=== PATIENT | male | born 1940 | race Caucasian/White ===

== ENCOUNTER 2018-08-01 13:05 | Observation (INO) ==
[2018-08-01] MEDS ORDERED: Ipratropium/Albuterol Neb 3 ML IH ONE (13:29)
[2018-08-01 13:37] LABS: Basophils % 0.4 %; Eosinophils % 0.4 %; Hematocrit 45.9 % (37.5-50.1); Hemoglobin 14.2 g/dL (12.9-16.9); Immature Granulocytes % 0.4 % (0-4); Lymphocytes # 1.4 K/mcL (0.6-4.6); Lymphocytes % 20.2 %; Mean Corpuscular HGB Conc 30.9 g/dL (31.6-35.5); Mean Corpuscular Volume 90.5 fL (83.0-100.0); Mean Platelet Volume 12.3 fL (9.4-12.4); Monocytes # 0.7 K/mcL (0.0-1.3); Monocytes % 9.9 %; Neutrophils # 4.9 K/mcL (1.6-8.9); Platelet Count 216 K/mcL (140-400); Red Blood Count 5.07 M/mcL (4.19-5.50); Red Cell Distribution Width 15.2 % (11.5-14.5); Segmented Neutrophils % 68.7 %
--- NOTE | 2018-08-01 13:38 | Emergency Department Note ---
Disposition Clinical Impression: CHF exacerbation Qualifiers: Heart failure type: unspecified Qualified Code(s): I50.9 - Heart failure, unspecified Disposition: Admitted As Inpatient Condition: Fair Time of Disposition: 15:33 SOB HPI - General Chief Complaint: ED Shortness of Breath/Dyspnea Stated Complaint: ANAI Time Seen by Provider: 08/01/18 13:09 Source: patient, family Mode of arrival: ambulatory Limitations: no limitations Nursing Notes Reviewed: Yes Vital Signs Reviewed: Yes - History of Present Illness Patient presents to the emergency department for evaluation of increasing shortness of breath over the last week. He states that he has had similar symptoms in the past, and recently underwent a left-sided thoracentesis, which did result in resolution of his symptoms for a short period of time. He says that his symptoms have returned over the last week, and he has had worsening shortness of breath with exertion and when lying flat. He denies any sputum production, chest congestion, fevers, or chills. He states that he called his do ctor's office and was unable to be seen until Friday. He says that he was instructed to go to the emergency department for evaluation and possible repeat thoracentesis if his symptoms worsened, prompting his visit today. He denies any other concerns at this time. Pt Subjective Complaint: shortness of breath Onset (ago): day(s) Consistency/Duration: gradually worsening Improves with: nothing Worsens with: lying flat, exertion Known history of: COPD, congestive heart failure Associated symptoms: Reports: denies other symptoms Treatment prior to arrival: none Cough present: No - Related Data Home Medications Medication Instructions Recorded Confirmed Albuterol Sulfate [Albuterol 2 puff IH DAILY 08/01/18 08/01/18 Inhaler] Apixaban [Eliquis] 5 mg PO BID 08/01/18 08/01/18 Aspirin [Lo-Dose Aspirin EC] 81 mg PO DAILY 08/01/18 08/01/18 Atorvastatin [Lipitor] 80 mg PO HS 08/01/18 08/01/18 Budesonide/Formoterol 160/4.5 2 puff IH BIDR 08/01/18 08/01/18 [Symbicort 160/4.5] Empagliflozin [Jardiance] 25 mg PO DAILY 08/01/18 08/01/18 Furosemide [Lasix] 20 mg PO DAILY 08/01/18 08/01/18 Glimepiride [Amaryl] 4 mg PO BID 08/01/18 08/01/18 Insulin Glargine [Lantus] 0 unit SQ 08/01/18 Nitroglycerin [Nitrostat] 0.4 mg SL Q5-10MIN PRN 08/01/18 08/01/18 Potassium Chloride [Klor-Con 10] 10 meq PO DAILY 08/01/18 08/01/18 RX: Carvedilol 12.5 mg PO BID 08/01/18 08/01/18 RX: hydroCHLOROthiazide 12.5 mg PO DAILY 08/01/18 08/01/18 [Hydrochlorothiazide] RX: traZODone [TraZODone] 50 mg PO HS 08/01/18 08/01/18 Tiotropium [Spiriva] 18 mcg IH 0700 08/01/18 08/01/18 metFORMIN [Glucophage] 1,000 mg PO BIDWM 08/01/18 08/01/18 Allergies Allergy/AdvReac Type Severity Reaction Status Date / Time Penicillins Allergy Rash Verified 07/15/18 09:52 Constitutional: Denies: fever, chills, weakness, weight change Eyes: Denies: eye pain, eye discharge, vision change Cardiovascular: Denies: chest pain, palpitations, dyspnea on exertion, edema, syncope Respiratory: Reports: as per HPI. Denies: cough, dyspnea, wheezes, hemoptysis, stridor Gastrointestinal: Denies: abdominal pain, nausea, vomiting, diarrhea, constipation, hematemesis, melena, hematochezia Musculoskeletal: Denies: back pain, neck pain, arthralgia, myalgia Past Medical History - Past Medical History Medical history: Reports: asthma, atrial fibrillation, CHF, CVA, diabetes, GERD, hypertension Surgical history: Reports: appendectomy, tonsilectomy, vascular surgery Psychiatric history: Reports: no psych history - Social History Smoking Status: Current every day smoker Smokeless Tobacco Status: No Alcohol use: Reports: none Drug use: Reports: none Physical Exam - General Limitations: no limitations General appearance: alert - Head Head exam: atraumatic, normocephalic, normal inspection - Eye Eye exam: Present: normal appearance, PERRL, EOMI - ENT ENT exam: normal exam, normal oropharynx, mucous membranes moist - Neck Neck exam: Present: normal inspection, full ROM, trachea midline - Chest Chest inspection: Present: normal inspection - Respiratory Respiratory exam: Present: wheezes, prolonged expiratory phase - Cardiovascular Cardiovascular exam: Present: irregular rhythm, normal heart sounds, +S1, +S2 - Abdominal Exam Abdominal exam: Present: soft, Non-Tender. Absent: tenderness, distention, guarding, rebound, rigidity - Extremities Exam Extremities exam: Present: pedal edema (mild pitting edema LLE) - Neurological Exam Neurological exam: Present: alert, oriented X3 - Psychiatric Psychiatric exam: Present: normal affect, normal mood Course Course Narrative: Vital signs reviewed. Concern for COPD and/or CHF exacerbation. We will obtain EKG, chest xray, and basic laboratory studies, including BNP. Disposition pending. - Reevaluation(s) Reevaluation #1: Laboratory and imaging studies reviewed. At this time, patient is appropriate for hospital admission for CHF exacerbation. Case was discussed with the admitting hospitalist, Dr. Roy, who accepted the patient for admission. Reevaluation #2: The patient did not improve with breathing treatments. Patient was significant elevated BNP. Given cardiac history likely related to CHF. Patient given Lasix. Patient will be admitted for further management. Vital Signs Temperature 98.6 F 08/01/18 13:13 Pulse Rate 105 08/01/18 13:13 Respiratory Rate 16 08/01/18 13:13 Blood Pressure 101/82 08/01/18 13:13 O2 Sat by Pulse Oximetry 92 08/01/18 13:13 Temperature 98.6 F 08/01/18 13:13 Pulse Rate 108 08/01/18 15:19 Respiratory Rate 20 08/01/18 15:19 Blood Pressure 169/89 08/01/18 15:19 O2 Sat by Pulse Oximetry 98 08/01/18 15:19 Oxygen Delivery Oxygen Delivery Nasal Cannula Shortness of Breath/Dyspnea - Lab Data Lab results reviewed: Yes I reviewed the patient's lab results. Result diagrams: 08/01/18 13:22 08/01/18 13:22 Lab Results 08/01/18 08/01/18 08/01/18 Range/Units 13:22 13:22 13:22 WBC 7.1 (4.3-11.1) K/mcL RBC 5.07 (4.19-5.50) M/mcL Hgb 14.2 (12.9-16.9) g/dL Hct 45.9 (37.5-50.1) % MCV 90.5 (83.0-100.0) fL MCH 28.0 (28.0-33.3) pg MCHC 30.9 L (31.6-35.5) g/dL RDW 15.2 H (11.5-14.5) % Plt Count 216 (140-400) K/mcL MPV 12.3 (9.4-12.4) fL Immature Gran % 0.4 (0-4) % Seg Neutrophils % 68.7 % Lymphocytes % 20.2 % Monocytes % 9.9 % Eosinophils % 0.4 % Basophils % 0.4 % Neutrophils # 4.9 (1.6-8.9) K/mcL Lymphocytes # 1.4 (0.6-4.6) K/mcL Monocytes # 0.7 (0.0-1.3) K/mcL Eosinophils # 0.0 (0.0-0.6) K/mcL Basophils # 0.0 (0.0-0.2) K/mcL Sodium 139 (136-145) mEq/L Potassium 4.2 (3.5-5.1) mEq/L Chloride 103 (98-107) mEq/L Carbon Dioxide 28 (23-29) mEq/L BUN 16 (8-23) mg/dL Creatinine 0.92 (0.70-1.30) mg/dL Est GFR ( Amer) > 60 (> 60) Est GFR (Non-Af Amer) > 60 (> 60) BUN/Creatinine Ratio 17 (6-26) Glucose 160 H (70-105) mg/dL Calculated Osmolality 293 (280-300) Lactic Acid (0.5-2.2) mmol/L Calcium 9.0 (8.6-10.3) mg/dL Troponin I 0.03 (< 0.04) ng/mL B-Natriuretic Peptide 859 H (Less than 100) pg/mL 08/01/18 Range/Units 14:00 WBC (4.3-11.1) K/mcL RBC (4.19-5.50) M/mcL Hgb (12.9-16.9) g/dL Hct (37.5-50.1) % MCV (83.0-100.0) fL MCH (28.0-33.3) pg MCHC (31.6-35.5) g/dL RDW (11.5-14.5) % Plt Count (140-400) K/mcL MPV (9.4-12.4) fL Immature Gran % (0-4) % Seg Neutrophils % % Lymphocytes % % Monocytes % % Eosinophils % % Basophils % % Neutrophils # (1.6-8.9) K/mcL Lymphocytes # (0.6-4.6) K/mcL Monocytes # (0.0-1.3) K/mcL Eosinophils # (0.0-0.6) K/mcL Basophils # (0.0-0.2) K/mcL Sodium (136-145) mEq/L Potassium (3.5-5.1) mEq/L Chloride (98-107) mEq/L Carbon Dioxide (23-29) mEq/L BUN (8-23) mg/dL Creatinine (0.70-1.30) mg/dL Est GFR ( Amer) (> 60) Est GFR (Non-Af Amer) (> 60) BUN/Creatinine Ratio (6-26) Glucose (70-105) mg/dL Calculated Osmolality (280-300) Lactic Acid 0.9 (0.5-2.2) mmol/L Calcium (8.6-10.3) mg/dL Troponin I (< 0.04) ng/mL B-Natriuretic Peptide (Less than 100) pg/mL - Radiology Data Radiology results reviewed: Yes I reviewed the patient's radiology results. - EKG Data EKG attestation: Yes I reviewed and interpreted this EKG. EKG results narrative: Atrial fibrillation with rate 108bpm. No ST or T-wave abnormalities. Attestation Statement - Attestation Attestation: Resident Attestation: I examined this patient and my medical decision making was reviewed with the Resident Physician. I agree with the documented findings, disposition and treatment plan as described except to the extent set forth below. We independently had [id number] contact with the patient. Patient with a significant history of CHF as well as COPD underwent recent thoracentesis as well as recent PET scan. Patient complaining of shortness of breath. Patient's shortness of breath is worse with exertion. Patient is otherwise comfortable while he was resting in the bed. Patient does have significant wheezing throughout. Patient will receive breathing treatments as well as investigation for other underlying pathology.
[2018-08-01 14:03] LABS: BUN/Creatinine Ratio 17 (6-26); Blood Urea Nitrogen 16 mg/dL (8-23); Carbon Dioxide 28 mEq/L (23-29); Chloride 103 mEq/L (98-107); Glucose 160 mg/dL (70-105); Osmolality,Calculated 293 (280-300); Potassium 4.2 mEq/L (3.5-5.1); Sodium 139 mEq/L (136-145); Troponin I 0.03 ng/mL (< 0.04); eGFR For Non-African Americans > 60 (> 60)
[2018-08-01] MEDS ORDERED: Furosemide 40 MG/4 ML VIAL IVP ONE (15:06)
[2018-08-01] MEDS ORDERED: traMADol 50 MG TABLET PO PRN (16:17)
[2018-08-01] MEDS ORDERED: Naloxone 0.4 MG/ML INJ IVP PRN (16:17)
[2018-08-01] MEDS ORDERED: Isovue-370 500 ML BOTTLE IVP ONE (16:22)
[2018-08-01] MEDS ORDERED: Ipratropium/Albuterol Neb 3 ML IH PRN (16:23)
[2018-08-01] MEDS ORDERED: Dextrose Gel 15 GM/37.5 ML TUBE PO PRN ×2 (16:56)
[2018-08-01] MEDS ORDERED: D5% in Water 1,000 ML IVC PRN (16:56)
[2018-08-01] MEDS ORDERED: *HR* Dextrose 50 % in Water (Syg) 50 ML SYRINGE IVP PRN (16:56)
--- NOTE | 2018-08-01 17:02 | Internal Med History&Physical ---
Date of Encounter: 08/01/18 Time of Encounter: 16:57 Internal Medicine - H&P: HPI Chief complaint: shortness of breath Plans for Post Hospital Care: Home History of present illness: Mr. Donaldson is a 78 year old male PMH of A.fib on eliquis, CHF, DM, HLD, HTN, COPD and tobacco abuse. Patient presented to the ED due to shortness of breath. He reports for the past 1 week he has been feeling short of breath with mild exertion, but the shortness of breath has worsen for the past 3-4 days, and he is getting short of breath while walking a shorter distance, also reports worsening edema of the lower extremities, denies orthopnea or PND. He denies chest pain, nausea or vomiting. Reports he has been compliant with his medications. Reports this symptoms are similar to what he had about two weeks ago when he was found to have a large effusion on his chest that needed to be drained. Reported productive cough of clear and yellowish sputum. Denies fever, chills, blood in his urine or the stool. Past Med Surg Social Fam HX - Past Medical History Medical history: asthma, atrial fibrillation, CHF, CVA, diabetes, GERD, hypertension Additional medical history: CVA 10/2017. A-fib. heart and carotid stents. bilateral plueral effusions Psychiatric history: no psych history - Past Surgical History Surgical History: appendectomy, tonsilectomy, vascular surgery - Social History Smoking Status: Current every day smoker Smokeless Tobacco Status: No Alcohol use: none Drug use: none - Additional Family History Additional family history: Family Hx non-contributory Internal Medicine - H&P: Meds Allergy/AdvReac Type Severity Reaction Status Date / Time Penicillins Allergy Rash Verified 07/15/18 09:52 All Systems PM: A 10-system review of systems was performed and is negative for pertinent findings except as documented above in the HPI. - Constitutional Constitutional: malaise, weakness, no chills, no fever(s), no lethargy, no weight gain, no weight loss - EENT Eyes: no discharge - Cardiovascular Cardiovascular ROS IM: dyspnea, dyspnea on exertion, edema, no chest pain, no diaphoresis, no irregular heart rhythm, no lightheadedness, no orthopnea, no palpitations, no syncope - Respiratory Respiratory: cough, dyspnea on exertion, no wheezing, no chest congestion, no excessive phlegm production, no change in phlegm color, no pain with cough - Gastrointestinal Gastrointestinal: no abdominal pain, no constipation, no dyspepsia, no nausea, no vomiting - Genitourinary Genitourinary ROS male: no dysuria, no nocturia, no urinary frequency, no urinary urgency - Musculoskeletal Musculoskeletal ROS IM: no back pain - Integumentary Integumentary IM: no sores - Neurological Neurological ROS: no headache(s) - Psychiatric Psychiatric: no anxiety, no hopelessness, no irritability - Endocrine Endocrine IM: no cold intolerance, no excessive sweating - Hematologic/Lymphatic Hematologic/Lymphatic: no lymphadenopathy - Allergic/Immunologic Allergic/Immunologic: no GI upset with certain foods Additional comments: Rest of a 10 review of system negative. - Constitutional Vitals: Temp Pulse Resp BP Pulse Ox 98.6 F 90 22 163/89 98 08/01/18 13:13 08/01/18 16:00 08/01/18 16:00 08/01/18 16:00 08/01/18 16:00 Exam: Vitals: reviewed. General: Alert and oriented x4. In mild distress due to shortness of breath Skin: Normal color, no rash, no lesions. HEENT: EOM, pupils equal, round and reactive. Cardiovascular: Irregularly, irregular, normal S1 & S2, no rubs, gallops. III/ systolic murmur. Lungs: scattered b/l expiratory wheezing, no crackles or rales. Abdomen: Obese, soft, non-tender, no rigidity. Extremities: 2+ edema in the lower extr b/l. Neurological: Normal cognition Rest of the physical exam is non contributory Internal Med - H&P Results - Labs CBC & Chem 7: 08/01/18 13:22 08/01/18 13:22 Labs: Short CBC 08/01/18 Range/Units 13:22 WBC 7.1 (4.3-11.1) K/mcL Hgb 14.2 (12.9-16.9) g/dL Hct 45.9 (37.5-50.1) % Plt Count 216 (140-400) K/mcL Neutrophils # 4.9 (1.6-8.9) K/mcL BMP 08/01/18 13:22 Sodium 139 Potassium 4.2 Chloride 103 Carbon Dioxide 28 BUN 16 Creatinine 0.92 Glucose 160 H Calcium 9.0 Cardiac Enzymes 08/01/18 Range/Units 13:22 Troponin I 0.03 (< 0.04) ng/mL - Impressions ITS Impressions Chest X-Ray 08/01/18 13:30 IMPRESSION: 1. Bilateral lower lobe airspace opacification could represent a multifocal pneumonia 2. Left-sided pleural effusion D/ / Kendall Rojas MD / Kendall Rojas MD Interpreting Provider: Kendall Rojas MD - Diagnostic Studies Chest x-ray Status: image reviewed by me (b/l pleural effusion) - Assessment and Plan (1) CHF exacerbation Current Visit: Yes Status: Acute Assessment and plan: patient presenting with shortness of breath, elevated BNP and edema of the lower extremities Plan: IV diruresis with furosemide 40mg/IV BID strict intake and output water restriction to 1.5 litters a day. daily weight Low dose beta-donna TTE ordered Qualifiers: Heart failure type: unspecified Qualified Code(s): I50.9 - Heart failure, unspecified (2) COPD exacerbation Current Visit: Yes Status: Acute Assessment and plan: patient with b/l expiratory wheezing. Hx of tobacco abuse. Plan Started on bronchodilators Q4RT scheduled Solu-Medrol 40mg/IV Q12hr started on empiric antibiotics coverage with levofloxacin 750mg/IV daily O2 by nasal cannula, titrate for O2Sat >92% Chest ct ordered to better evaluate lung parenchyma. (3) A-fib Current Visit: Yes Status: Chronic Assessment and plan: patient reports being on eliquis. will resume home medications when verified by the pharmacy. started on carvedilol 3.125mg/PO BID Qualifiers: Atrial fibrillation type: unspecified Qualified Code(s): I48.91 - Un specified atrial fibrillation (4) Diabetes Current Visit: Yes Status: Chronic Assessment and plan: patient started on long and short acting insulin coverage. Carb controlled diet. 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 will continue to monitor. Qualifiers: Hypertension type: unspecified Qualified Code(s): I10 - Essential (primary) hypertension (7) DVT prophylaxis Current Visit: Yes Status: Chronic Assessment and plan: patient on an oral anticoagulant (8) Pleural effusion Current Visit: Yes Status: Chronic Assessment and plan: CTA of the chest: Moderate to large bilateral pleural effusions with adjacent advanced compressive atelectasis. Patient had a left sided thoracentesis 07/15/18 with 900 cc of fluids removed. Plan: Patient started on IV diuretics consider Pulmonology consult for possible thoracentesis. - Time Spent With Patient Total time spent is greater than 50% in coordination of care (as documented) at patient's floor/unit and/or counseling patient: Greater than 35 minutes (45)
[2018-08-01] MEDS: Levofloxacin 750 MG/150 ML 750 MG/150 ML BAG IVPB SCH (17:10)
[2018-08-01 17:47] LABS: INR 1.2; Prothrombin Time 13.7 Seconds (9.4-12.1)
[2018-08-01] MEDS: MethylPREDNISolone 40 MG/ML VIAL IVP SCH (18:33)
[2018-08-01] MEDS: traZODone 50 MG TABLET PO PRN (20:18)
[2018-08-01] MEDS: Nicotine 21 MG PATCH.TD24 TD SCH (20:18)
[2018-08-01] MEDS: Apixaban 5 MG TABLET PO SCH (20:18)
[2018-08-01] MEDS: Furosemide 40 MG/4 ML VIAL IVP SCH (20:19)
[2018-08-01] MEDS: Insulin DETEMIR 100 UNIT/ML X5UNITS SQ SCH (21:08)
[2018-08-01] MEDS: Insulin LISPRO 300 UNITS/3 ML VIAL SQ SCH (21:08)
[2018-08-01] MEDS ORDERED: *HR* Heparin 5,000 UNIT/ML VIAL SQ SCH (22:00)
[2018-08-02 05:32] LABS: Basophils % 0.1 %; Hematocrit 46.9 % (37.5-50.1); Hemoglobin 14.1 g/dL (12.9-16.9); Immature Granulocytes % 0.4 % (0-4); Lymphocytes # 1.1 K/mcL (0.6-4.6); Lymphocytes % 14.9 %; Mean Corpuscular HGB Conc 30.1 g/dL (31.6-35.5); Mean Corpuscular Volume 89.8 fL (83.0-100.0); Mean Platelet Volume 12.4 fL (9.4-12.4); Monocytes # 0.7 K/mcL (0.0-1.3); Monocytes % 9.3 %; Neutrophils # 5.3 K/mcL (1.6-8.9); Platelet Count 245 K/mcL (140-400); Red Blood Count 5.22 M/mcL (4.19-5.50); Red Cell Distribution Width 14.9 % (11.5-14.5); Segmented Neutrophils % 75.3 %
[2018-08-02] MEDS: MethylPREDNISolone 40 MG/ML VIAL IVP SCH ×2 (05:32→16:43)
[2018-08-02 05:42] LABS: BUN/Creatinine Ratio 19 (6-26); Blood Urea Nitrogen 16 mg/dL (8-23); Calcium 9.4 mg/dL (8.6-10.3); Carbon Dioxide 32 mEq/L (23-29); Chloride 100 mEq/L (98-107); Chol/HDL Ratio 2.5 (0-4.9); Cholesterol 116 mg/dL (< 200); Glucose 170 mg/dL (70-105); HDL Cholesterol 47 mg/dL (40-59); LDL Cholesterol,Calculated 59 mg/dL (0-99); Magnesium 1.7 mg/dL (1.6-2.6); Osmolality,Calculated 295 (280-300); Phosphorous 4.2 mg/dL (2.7-4.5); Sodium 140 mEq/L (136-145); Triglycerides 52 mg/dL (< 150); eGFR For Non-African Americans > 60 (> 60)
[2018-08-02] MEDS ORDERED: Tiotropium 18 MCG inhalation IH SCH (07:00)
[2018-08-02] MEDS: Apixaban 5 MG TABLET PO SCH ×2 (07:40→20:29)
[2018-08-02] MEDS: Nicotine 21 MG PATCH.TD24 TD SCH (07:40)
[2018-08-02] MEDS: Insulin LISPRO 300 UNITS/3 ML VIAL SQ SCH ×4 (07:41→20:31)
[2018-08-02] MEDS: Furosemide 40 MG/4 ML VIAL IVP SCH ×2 (07:41→16:43)
[2018-08-02] MEDS: Levofloxacin 750 MG/150 ML 750 MG/150 ML BAG IVPB SCH (09:43)
[2018-08-02] MEDS: Budesonide/Formoterol 160/4.5 1 PUFF INH IH SCH ×2 (11:09→21:13)
[2018-08-02] MEDS ORDERED: Perflutren Lipid Microsphere 1.3 ML in 0.9 % Sodium Chloride 8.7 ML IVP ONE (15:48)
[2018-08-02] MEDS ORDERED: Perflutren Lipid Microsphere 2 ML VIAL ONE (15:56)
[2018-08-02] MEDS: Insulin DETEMIR 100 UNIT/ML X5UNITS SQ SCH (20:30)
[2018-08-02] MEDS: traZODone 50 MG TABLET PO PRN (20:34)
--- NOTE | 2018-08-02 23:21 | Internal Med Progress Note ---
Hospitalist Progress Note - Encounter Date of Encounter: 08/02/18 Time of Encounter: 19:00 - Subjective Interval History: SUBJECTIVE: The patient is a 78-year-old man, who was admitted with difficulty breathing. We found him to have moderate to large bilateral pleural effusions with adjacent advanced compressive atelectasis. He is treated with IV diuretic. Difficulty breathing subsided. Basically, his pulse ox is normal on room air. OBJECTIVE: Skin: Free of rash and discoloration. ENMT: Oral/pharyngeal mucosa is normal in appearance. Eyes: Sclera is white. There is no discharge from eyes. Respiratory: Normal breath sounds; no crackles or wheezes. CV: Heart is regular; no gallop or murmur. GI: Abdomen is soft and not tender. There is no palpable mass or visceromegaly. ADDITIONAL DATA: Hemoglobin is 14.1 with normal WBC/platelet count. Electrolytes are normal. Creatinine 0.84. His BNP at admission was 859. Troponin was checked on a few occasionsnormal. ASSESSMENT AND PLAN: Difficulty breathing secondary to new onset of CHF. I doubt he has pneumonia. He might have had exacerbation of COPD in addition to CHF. I will substitute IV Lasix with combination of Zaroxolyn and Demadex. Fluid restriction of 1500 mL per day. I will repeat his chest x-ray tomorrow. He gets Levaquin, Solu-Medrol and nebulizer treatments with Symbicort/DuoNeb. I will substitute Solu-Medrol with oral prednisone. He has underlying atrial fibrillation. Rate controlled. To continue Eliquis. Type 2 diabetes mellitus and hypertension are stable. He was on Amaryl and Glucophage at home. Currently, he gets when necessary Humalog. He is on Coreg. DISPOSITION: Echocardiogram will be done today evening. Tentative discharge in 1-2 days. - Exam Vitals: Temp Pulse Resp BP Pulse Ox 98.1 F 104 18 172/68 92 08/02/18 19:50 08/02/18 19:50 08/02/18 21:14 08/02/18 19:50 08/02/18 21:14 Exam: xx - Assessment and Plan (1) CHF exacerbation Current Visit: Yes Status: Acute (2) COPD exacerbation Current Visit: Yes Status: Acute (3) A-fib Current Visit: Yes Status: Chronic (4) Diabetes Current Visit: Yes Status: Chronic (5) HTN (hypertension) Current Visit: Yes Status: Chronic (6) HLD (hyperlipidemia) Current Visit: Yes Status: Chronic - Time Spent with Patient Total time spent is greater than 50% in coordination of care (as documented) at patient's floor/unit and/or counseling patient: 25 - 35 minutes Plan of Care Discussed with: patient (and family) Internal Medicine: Result - Labs CBC & Chem 7: 08/02/18 04:53 08/02/18 04:53 Labs: Short CBC 08/02/18 Range/Units 04:53 WBC 7.1 (4.3-11.1) K/mcL Hgb 14.1 (12.9-16.9) g/dL Hct 46.9 (37.5-50.1) % Plt Count 245 (140-400) K/mcL Neutrophils # 5.3 (1.6-8.9) K/mcL BMP 08/02/18 04:53 Sodium 140 Potassium 4.0 Chloride 100 Carbon Dioxide 32 H BUN 16 Creatinine 0.84 Glucose 170 H Calcium 9.4 Cardiac Enzymes 08/01/18 08/02/18 Range/Units 22:15 04:53 Troponin I 0.03 0.03 (< 0.04) ng/mL - ABG Interpretation ABG results: PT/INR, D-dimer PT 13.7 Seconds (9.4-12.1) H 08/01/18 17:12 D-Dimer 785 ng/mLFEU (0-500) H 08/01/18 17:12 Consult Discharge Plan - Plan Referrals: Marcus Sibley MD [Primary Care Provider] - (1) CHF exacerbation Qualifiers: Heart failure type: unspecified Qualified Code(s): I50.9 - Heart failure, unspecified (3) A-fib Qualifiers: Atrial fibrillation type: unspecified Qualified Code(s): I48.91 - Unspecified atrial fibrillation (4) Diabetes Qualifiers: Diabetes mellitus type: type 2 Diabetes mellitus care home insulin 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
[2018-08-03 07:08] LABS: BUN/Creatinine Ratio 23 (6-26); Blood Urea Nitrogen 20 mg/dL (8-23); Calcium 9.2 mg/dL (8.6-10.3); Carbon Dioxide 34 mEq/L (23-29); Chloride 99 mEq/L (98-107); Glucose 325 mg/dL (70-105); Magnesium 1.8 mg/dL (1.6-2.6); Osmolality,Calculated 295 (280-300); Potassium 3.7 mEq/L (3.5-5.1); Sodium 135 mEq/L (136-145); eGFR For Non-African Americans > 60 (> 60)
[2018-08-03] MEDS: Budesonide/Formoterol 160/4.5 1 PUFF INH IH SCH (07:35)
[2018-08-03] MEDS: Levofloxacin 750 MG/150 ML 750 MG/150 ML BAG IVPB SCH (07:43)
[2018-08-03] MEDS: Apixaban 5 MG TABLET PO SCH (07:43)
[2018-08-03] MEDS: Insulin LISPRO 300 UNITS/3 ML VIAL SQ SCH ×2 (07:44→11:35)
[2018-08-03] MEDS: Nicotine 21 MG PATCH.TD24 TD SCH (07:45)
[2018-08-03] MEDS ORDERED: metOLazone 5 MG TABLET PO SCH (08:00)
[2018-08-03] MEDS ORDERED: predniSONE 20 MG TABLET PO SCH (09:00)
[2018-08-03] MEDS ORDERED: Furosemide 40 MG TABLET PO SCH (09:00)
[2018-08-03 11:10] VITALS: BP 152/69
--- NOTE | 2018-08-03 12:06 | Discharge Summary ---
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: unspecified assisted insulin use status Diabetes mellitus complication status: with unspecified complications Qualified Code(s): E11.8 - Type 2 diabetes mellitus with unspecified complications (5) HTN (hypertension) Priority: Secondary Status: Chronic Qualifiers: Hypertension type: unspecified Qualified Code(s): I10 - Essential (primary) hypertension (6) HLD (hyperlipidemia) Priority: Secondary Status: Chronic Qualifiers: Hyperlipidemia type: unspecified Qualified Code(s): E78.5 - Hyperlipidemia, unspecified Hospital course: HOSPITAL COURSE: The patient is a 78-year-old male, who was admitted with difficulty breathing. We found him to have moderate to large bilateral pleural effusions with adjacent compressive atelectasis. We offered him IV Lasix; switched to combination of oral Zaroxolyn and Lasix before the discharge. Echocardiogram has been obtained. It showed ejection fraction of 55-60%. It showed indeterminate diastolic function. One can see her elevated BNP at [id number]. With normal troponinon a few occasions. We also treated him for COPD exacerbation with Levaquin, Solu-Medrol and nebulizer treatments with DuoNeb. He was on daily Spiriva. He got treatments for atrial fibrillation, hypertension and type 2 diabetes mellitus. His chest x-ray done on discharge showed cardiomegaly with mild vascular congestion. Together with bibasilar atelectasis (with small left pleural effusion). CONDITION AT DISCHARGE: The patient feels good. Denies chest pain and difficulty breathing. He has mild coughing but not wheezing. Denies abdominal pain, nausea and vomiting. He has normal urination. Skin: Free of rash and discoloration. Respiratory: Normal breath sounds with no crackles and wheezes bilaterally. CV: Heart is regular with no gallop or murmur. GI: Abdomen is flat and soft with no palpable mass or visceromegaly. Neuro exam: There is no focal deficits. Normal speech, swallowing and gait. SEE DISCHARGE ORDERS/MEDICATIONS His CBC and BMP/magnesium need to be checked in about 2 weeks. Discharge discussed with: patient, family - Time Spent with Patient Total time spent providing and/or coordinating discharge services: Time spent: Greater than 30 minutes (40minutes...) - Discharge Medications Prescriptions: New Furosemide [Lasix] 40 mg PO QAM #30 tablet metOLazone [Zaroxolyn] 5 mg PO DAILY@0800 #30 tablet predniSONE [PredniSONE] 20 mg PO QAM #5 tablet Continue traZODone [TraZODone] 50 mg PO HS Tiotropium [Spiriva] 18 mcg IH 0700 Budesonide/Formoterol 160/4.5 [Symbicort 160/4.5] 2 puff IH BIDR Atorvastatin [Lipitor] 80 mg PO HS Carvedilol 12.5 mg PO BID Nitroglycerin [Nitrostat] 0.4 mg SL Q5-10MIN PRN PRN Reason: Chest Pain Glimepiride [Amaryl] 4 mg PO BID Empagliflozin [Jardiance] 25 mg PO QAM Aspirin [Lo-Dose Aspirin EC] 81 mg PO QAM Apixaban [Eliquis] 5 mg PO BID Albuterol Sulfate [Albuterol Inhaler] 2 puff IH DAILY #1 inhaler Changed Potassium Chloride [Klor-Con 10] 10 meq PO BID #60 tablet.er Discontinued Furosemide [Lasix] 20 mg PO DAILY hydroCHLOROthiazide [Hydrochlorothiazide] 12.5 mg PO DAILY No Action hydroCHLOROthiazide [Hydrochlorothiazide] 12.5 mg PO QAM Insulin Glargine,Hum.rec.anlog [Lantus Solostar] 10 - 12 units SQ BID MDD SLIDING SCALE Metformin HCl 1,000 mg PO BIDWM Home Medications: Apixaban [Eliquis] 5 mg PO BID 08/01/18 [History] Aspirin [Lo-Dose Aspirin EC] 81 mg PO QAM 08/01/18 [History] Atorvastatin [Lipitor] 80 mg PO HS 08/01/18 [History] Budesonide/Formoterol 160/4.5 [Symbicort 160/4.5] 2 puff IH BIDR 08/01/18 [History] Carvedilol 12.5 mg PO BID 08/01/18 [History] Empagliflozin [Jardiance] 25 mg PO QAM 08/01/18 [History] Glimepiride [Amaryl] 4 mg PO BID 08/01/18 [History] Nitroglycerin [Nitrostat] 0.4 mg SL Q5-10MIN PRN 08/01/18 [History] Tiotropium [Spiriva] 18 mcg IH 0700 08/01/18 [History] traZODone [TraZODone] 50 mg PO HS 08/01/18 [History] Albuterol Sulfate [Albuterol Inhaler] 2 puff IH DAILY #1 inhaler 08/03/18 [Rx] Furosemide [Lasix] 40 mg PO QAM #30 tablet 08/03/18 [Rx] Insulin Glargine,Hum.rec.anlog [Lantus Solostar] 10 - 12 units SQ BID MDD SLIDING SCALE 08/03/18 [History] Metformin HCl 1,000 mg PO BIDWM 08/03/18 [History] Potassium Chloride [Klor-Con 10] 10 meq PO BID #60 tablet.er 08/03/18 [Rx] hydroCHLOROthiazide [Hydrochlorothiazide] 12.5 mg PO QAM 08/03/18 [History] metOLazone [Zaroxolyn] 5 mg PO DAILY@0800 #30 tablet 08/03/18 [Rx] predniSONE [PredniSONE] 20 mg PO QAM #5 tablet 08/03/18 [Rx] Allergies/Adverse Reactions: Allergy/AdvReac Type Severity Reaction Status Date / Time Penicillins Allergy Rash Verified 08/03/18 11:51 Date of admission: 08/01/18 17:12 Primary care physician: Marcus Sibley MD Consults: 08/01/18 18:24 Consult to [employer] [CONS] Routine Reason for SW Consult: Patient interested in discussing new oxygen carrier [employer]. he would like a service that delivers nad provides portable tanks. Discharging clinician: Vicente Rhoades Anticipated date of discharge: 08/03/18 - Constitutional Vitals: Temp Pulse Resp BP Pulse Ox 98.1 F 96 17 152/69 93 08/03/18 11:04 08/03/18 11:04 08/03/18 11:04 08/03/18 11:04 08/03/18 11:04 General appearance: Present: A&O X 3, no acute distress, answers questions appropriately Exam: xx - Patient Status Disposition: Home, Self-Care Condition: Fair Overall status at discharge: patient is back to baseline - Discharge Instructions Instructions: Metolazone (By mouth), Furosemide (By mouth), Albuterol (By breathing), Prednisone (By mouth), Potassium Chloride (By mouth), Heart Failure (DC), Chronic Obstructive Pulmonary Disease (DC) Follow Up With: Marcus Sibley MD [Primary Care Provider] - 08/10/18 3:30 pm (Please follow up as schedule....) Additional Instructions: FOLLOW-UP WITH PCP -- IN 1-2 WEEKS... CBC AND BMP/MG -- IN ABOUT 2 WEEKS - Diet and Activity Activity: resume usual activities as tolerated Diet: diabetic diet (FLUID RESTRICTION OF 1800 ML PER DAY...)
--- NOTE | 2018-08-06 09:21 | Electrocardiograph Report ---
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
== END 2018-08-03 16:47 | disposition home or self-care (01) ==
LOC: 2ANU 13:05 → EMEROOARM 13:05 → 2ANU 17:54
PROVIDERS: ADMIT Internal Medicine; ATTEND Internal Medicine